=== PATIENT | male | born 1980 | race Two or more races ===

== ENCOUNTER → 2016-08-26 | Outpatient (CLI) | payer MEDICAID | END | disposition home or self-care (01) | LOC: WOUND 09:52 | PROVIDERS: ATTEND Internal Medicine | DX: E10.621 Type 1 diabetes mellitus with foot ulcer (principal); L97.411 Non-pressure chronic ulcer of right heel and midfoot limited to breakdown of skin; E66.01 Morbid (severe) obesity due to excess calories; K21.9 Gastro-esophageal reflux disease without esophagitis; I10 Essential (primary) hypertension; Z68.41 Body mass index [BMI] 40.0-44.9, adult; Z87.891 Personal history of nicotine dependence | CPT/HCPCS: 99205 ==